=== PATIENT | male | born 1985 | race Caucasian/White ===

== ENCOUNTER 2022-03-06 09:10 | Emergency (ER) | payer OTHER ==
[~2022-03-06] VITALS: Ht 170.2 cm; Wt 72.6 kg
[2022-03-06 09:10] VITALS: BP 129/81
--- NOTE | 2022-03-06 09:10 | NUR ---
ARRIVAL PATIENT ARRIVED TO [facility] AMBULATORY, C/O ABDOMEN PAIN FOR THE PAST 2 WEEKS, PATIENT HAS ATTEMPTED TO CHANGE DIET WITH SOME RELIEF, DID TAKE IBUPROFEN BI REPORT DEVELOPER, DECIDED TO COME TO THE ED FOR EVAL, VITAL SIGNS TAKEN AND DOCTOR MAKEDA NOTIFIED OF PATIENT'S ARRIVAL.
[2022-03-06] MEDS ORDERED: TYLENOL PO STA (09:36)
[2022-03-06] MEDS ORDERED: PEPCID PO STA (09:36)
[2022-03-06] MEDS ORDERED: MYLANTA PO STA (09:36)
[2022-03-06] MEDS ORDERED: LIDOCAINE HCL VISCOUS MM STA (09:36)
[2022-03-06] MEDS ORDERED: TYLENOL PO ONE (09:40)
[2022-03-06] MEDS ORDERED: LIDOCAINE HCL VISCOUS ONE (09:40)
[2022-03-06] MEDS ORDERED: PEPCID ONE (09:40)
--- NOTE | 2022-03-06 09:51 | ER.PDOC ---
General Chief Complaint: Abdomen Pain Stated Complaint: ABD PAIN Time seen by MD: 09:43 Source: patient Exam Limitations: no limitations History of Present Illness Initial Comments Healthy 36-year-old male comes in complaining of IBS abdominal pain. The symptoms have been going on for several days and they are worse at night and empty stomach. The pain is sometimes moderate to severe and persistent. No fever and no chills. No abdominal distention. No vomiting. No black stools. Denies any other complaint. Allergies: Coded Allergies: dextromoramide (Verified Allergy, Unknown, 03/06/22) promethazine (Verified Allergy, Unknown, 03/06/22) Vital Signs First Vital Signs Date Time Temp Pulse Resp B/P (MAP) Pulse Ox O2 Delivery O2 Flow Rate FiO2 03/06/22 09:10 97.9 74 20 129/81 (97) 100 Room Air* 0 21 Last Vital Signs Date Time Temp Pulse Resp B/P (MAP) Pulse Ox O2 Delivery O2 Flow Rate FiO2 03/06/22 09:10 97.9 74 20 03/06/22 09:10 100 03/06/22 09:10 129/81 (97) Room Air* 0 21 Past Medical History Medical History: no pertinent history Surgical History: no surgical history LMP (females 10-50): N/A Not applicalbe Family History Significant Family History: no pertinent family hx Social History Smoking: non-smoker Alcohol Use: none Drug Use: none Reviewed Nursing Reviewed: Vital Signs, Abn. Noted, Nursing Assessment Constitutional: denies no symptoms reported, denies see HPI, denies chills, denies diaphoresis, denies fever, denies malaise, denies weakness, denies other EENTM: denies no symptoms reported, denies see HPI, denies eye pain, denies blurred vision, denies tearing, denies double vision, denies ear pain, denies ear discharge, denies nose pain, denies nose congestion, denies throat pain, denies throat swelling, denies mouth pain, denies mouth swelling, denies other Respiratory: denies no symptoms reported, denies see HPI, denies cough, denies orthopnea, denies shortness of breath, denies SOB with exertion, denies SOB at rest, denies stridor, denies wheezing, denies other Cardiovascular: denies no symptoms reported, denies see HPI, denies chest pain, denies edema, denies irregular heart rate, denies lightheadedness, denies palpitations, denies syncope, denies other Gastrointestinal: denies no symptoms reported, denies see HPI, denies abdomen distended; abdominal pain; denies blood streaked bowels, denies constipated, denies diarrhea, denies difficulty swallowing, denies nausea, denies poor appetite, denies poor fluid intake, denies rectal bleeding, denies vomiting, denies other Genitourinary: denies no symptoms reported, denies see HPI, denies burning, denies dysuria, denies discharge, denies frequency, denies flank pain, denies hematuria, denies incontinence, denies pain, denies urgency, denies other Musculoskeletal: denies no symptoms reported, denies see HPI, denies back pain, denies gout, denies joint pain, denies joint swelling, denies muscle pain, denies muscle stiffness, denies neck pain, denies other Skin: denies no symptoms reported, denies see HPI, denies change in color, denies change in hair/nails, denies dryness, denies lesions, denies lumps, denies rash, denies other Psychiatric/Neurological: denies no symptoms reported, denies see HPI, denies anxiety, denies depressed, denies emotional problems, denies headache, denies numbness, denies paresthesia, denies pre-existing deficit, denies seizure, denies tingling, denies tremors, denies weakness, denies other Endocrine: denies no symptoms reported, denies see HPI, denies excessive sweating, denies flushing, denies intolerance to cold, denies intolerance to heat, denies increased hunger, denies increased thrist, denies increased urine, denies unexplained weight gain, denies unexplaned weight loss, denies other Hematologic/Lymphatic: denies no symptoms reported, denies see HPI, denies anemia, denies blood clots, denies easy bleeding, denies easy bruising, denies swollen glands, denies other All Other Systems: Reviewed and Negative Physical Exam General Appearance: No Apparent Distress, WD/WN HEENT: PERRL/EOMI, Normal ENT Inspection Neck: Non-Tender, Full Range of Motion Respiratory: chest non-tender, lungs clear, normal breath sounds Cardiovascular: Normal Peripheral Pulses, Regular Rate, Rhythm, No Edema Gastrointestinal: Normal Bowel Sounds, No Organomegaly, No Pulsatile Mass, Soft, Tenderness, Other (Epigastric tenderness) Back: Normal Inspection, No CVA Tenderness Extremities: Normal Range of Motion, Non-Tender, Normal Inspection, No Pedal Edema 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, No Motor/Sensory Deficits, Alert, Normal Mood/Affect, Oriented x 3 Skin: Normal Color, Warm/Dry Lymphatic: No Adenopathy Results/Orders Results/Orders Orders - MINDI ASHFORD MD Lidocaine Hcl (Lidocaine Hcl Viscous) (03/06/22 09:36) Mag Hydrox/Aluminum Hyd/Simeth (Mylanta) (03/06/22 09:36) Acetaminophen (Tylenol) (03/06/22 09:36) Famotidine (Pepcid) (03/06/22 09:36) Acetaminophen (Tylenol) (03/06/22 09:40) Lidocaine Hcl (Lidocaine Hcl Viscous) (03/06/22 09:40) Famotidine (Pepcid) (03/06/22 09:40) Vital Signs Date Time Temp Pulse Resp B/P (MAP) Pulse Ox O2 Delivery O2 Flow Rate FiO2 03/06/22 09:10 97.9 74 20 03/06/22 09:10 97.9 74 20 100 03/06/22 09:10 97.9 74 20 129/81 (97) 100 Room Air* 0 21 Progress Progress 36-year-old male comes in with epigastric abdominal pain. The pain is worse at night. Been going on for several days. Was also on empty stomach. No fever and no chills. No bleeding. No vomiting. Denies any other complaint. This is a textbook explanation for gastritis. ER DEPART Departure Time of Disposition: 09:52 Disposition: 01 HOME / SELF CARE / HOMELESS Impression: Primary Impression: Epigastric abdominal pain Additional Impression: Gastritis Condition: Stable Patient Instructions: Diet for Gastroesophageal Reflux Disease, Adult, Gastritis, Adult, [id number], Peptic Ulcer Disease, [id number] Referrals: PCP,UNKNOWN (PCP) PRIMARY CARE PROVIDER Additional Instructions: You may have gastritis or small stomach ulcer No spicy nor fatty meals for several months Take all medication as prescribed even after the pain is gone follow-up with your doctor soon as possible and consider testing for H. pylori Return to the hospital if any new symptoms develop follow-up Duration or Time Spent with Pa: 20 Problem Qualifiers MINDI ASHFORD MD Mar 06, 2022 09:51
[2022-03-06 09:58] VITALS: BP 123/52
== END 2022-03-06 10:15 | disposition home or self-care (01) ==
LOC: ER 09:10
DX: K29.70 Gastritis, unspecified, without bleeding (principal); R10.13 Epigastric pain; K58.9 Irritable bowel syndrome, unspecified
CPT/HCPCS: 99284; A9150; J3490

== ENCOUNTER 2022-03-23 02:20 | Emergency (ER) | payer OTHER ==
[~2022-03-23] VITALS: Ht 172.7 cm; Wt 70.8 kg
[2022-03-23 02:51] VITALS: BP 155/100
--- NOTE | 2022-03-23 03:31 | ER.PDOC ---
General Chief Complaint: Abdomen Pain Stated Complaint: ABD & BACK PAIN Time seen by MD: 03:31 Source: patient Exam Limitations: no limitations History of Present Illness Initial Comments Patient presents to the emergency room complaining of severe epigastric pain radiating to the right upper quadrant and back that has progressively gotten worse since 11 PM yesterday. Admits to nausea, pain is better with running on the treadmill as well as warm pad on his right flank/back. Denies any fever, urinary symptoms and in no acute distress, but appears uncomfortable due to pain. Severity/Quality: severe Radiation: RUQ, RLQ, flank, back (right) Associated Symptoms: back pain (right side) Relieved By: other (running on the treadmill) Allergies: Coded Allergies: dextromoramide (Verified Allergy, Unknown, 03/06/22) promethazine (Verified Allergy, Unknown, 03/06/22) Vital Signs First Vital Signs Date Time Temp Pulse Resp B/P (MAP) Pulse Ox O2 Delivery O2 Flow Rate FiO2 03/23/22 02:51 97.9 83 18 03/23/22 02:51 100 03/23/22 02:51 155/100 (118) Room Air* 0 21 Last Vital Signs Date Time Temp Pulse Resp B/P (MAP) Pulse Ox O2 Delivery O2 Flow Rate FiO2 03/23/22 05:53 97.9 82 16 142/71 (94) 96 Room Air* 0 21 Past Medical History Medical History: no pertinent history Surgical History: no surgical history Social History Alcohol Use: occassionally Drug Use: none Constitutional: denies chills, denies diaphoresis, denies fever, denies malaise, denies weakness Respiratory: denies cough, denies shortness of breath, denies SOB with exertion Cardiovascular: denies chest pain, denies lightheadedness Gastrointestinal: denies abdomen distended; abdominal pain, nausea; denies vomiting Genitourinary: denies dysuria Musculoskeletal: back pain (right side) Skin: denies change in color, denies rash Psychiatric/Neurological: denies headache All Other Systems: Reviewed and Negative Physical Exam General Appearance: No Apparent Distress, WD/WN HEENT: PERRL/EOMI, Normal ENT Inspection (external) Neck: Non-Tender, Full Range of Motion, Supple, Normal Inspection Respiratory: chest non-tender, lungs clear, normal breath sounds, no respiratory distress, no accessory muscle use Cardiovascular: Normal Peripheral Pulses, Regular Rate, Rhythm, No Edema, No Gallop, No JVD, No Murmur Gastrointestinal: Normal Bowel Sounds, No Organomegaly, No Pulsatile Mass, Soft, Guarding, Rebound (tenderness RUQ and RLQ), Tenderness (RUQ, RLQ, LLQ and epigastric region.), McBurneys point tender, Rovsing's sign Back: Normal Inspection, No Vertebral Tenderness, CVA Tenderness (R) Extremities: Normal Range of Motion, Non-Tender, Normal Inspection, No Pedal Edema, No Calf Tenderness, Normal Capillary Refill 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, No Motor/Sensory Deficits, Alert, Normal Mood/Affect, Oriented x 3 Skin: Normal Color, Warm/Dry Results/Orders Results/Orders Orders - ODELL AU MD Cbc With Auto Diff (03/23/22 03:39) Comprehensive Metabolic Panel (03/23/22 03:39) Lipase (03/23/22 03:39) Saline Lock (03/23/22 03:39) Morphine Sulfate (Morphine Sulfate) (03/23/22 03:39) Ondansetron Hcl/Pf (Zofran) (03/23/22 03:39) 0.9 % Sodium Chloride (Ns 1000ml) (03/23/22 03:40) 0.9 % Sodium Chloride (Ns 1000ml) (03/23/22 03:47) Ondansetron Hcl/Pf (Zofran) (03/23/22 03:48) Morphine Sulfate (Morphine Sulfate) (03/23/22 03:48) Ct Abd/Pel With Iv Contrast (03/23/22 04:48) Ketorolac Tromethamine (Toradol) (03/23/22 04:51) Ketorolac Tromethamine (Toradol) (03/23/22 05:16) Vital Signs Date Time Temp Pulse Resp B/P (MAP) Pulse Ox O2 Delivery O2 Flow Rate FiO2 03/23/22 05:53 97.9 82 16 142/71 (94) 96 Room Air* 0 21 03/23/22 05:00 97.9 83 18 137/94 (108) 99 Room Air* 0 21 03/23/22 04:00 97.9 77 18 143/94 (110) 97 Room Air* 0 03/23/22 02:51 97.9 83 18 155/100 (118) 100 Room Air* 0 03/23/22 02:51 97.9 83 18 100 03/23/22 02:51 97.9 83 18 Administered Medications Medications (Trade) Dose Ordered Sig/Werner Route PRN Reason Start Time Stop Time Status Last Admin Dose Admin Ketorolac Tromethamine (Toradol) 30 mg OT STAT IV 03/23/22 04:51 03/23/22 04:52 DC 03/23/22 05:19 30 MG Morphine Sulfate (Morphine Sulfate) 4 mg STAT STAT IV 03/23/22 03:39 03/23/22 03:41 DC 03/23/22 04:22 4 MG Ondansetron HCl (Zofran) 4 mg OT STAT IV 03/23/22 03:39 03/23/22 03:41 DC 03/23/22 04:22 4 MG Sodium Chloride 1,000 ml @ 999 mls/hr Q1H1M STAT IV 03/23/22 03:40 03/23/22 04:40 DC 03/23/22 04:23 999 MLS/HR Laboratory Tests Test 03/23/22 04:10 White Blood Count 8.0 10^3/uL (4.5-11.0) Red Blood Count 5.36 10^6/uL (4.50-5.90) Hemoglobin 16.3 g/dL (13.9-16.3) Hematocrit 46.9 % (37.0-53.0) Mean Corpuscular Volume 87.5 fL (78-100) Mean Corpuscular Hemoglobin 30.4 pg (26-34) Mean Corpuscular Hemoglobin Concent 34.8 g/dL (33-36.5) Red Cell Distribution Width 12.3 % (11.5-14.5) Platelet Count 179 10^3/uL (150-400) Mean Platelet Volume 12.7 fL (7.8-11.0) H Neutrophils (%) (Auto) 66.5 % (41.0-85.0) Lymphocytes (%) (Auto) 24.6 % (24.0-44.0) Monocytes (%) (Auto) 7.6 % (5.0-12.0) Neutrophils # (Auto) 5.3 10^3/uL (1.8-7.7) Lymphocytes # (Auto) 1.96 10^3/uL1 (1.0-4.8) Monocytes # (Auto) 0.6 10^3/uL (0.3-0.8) Absolute Immature Granulocyte (auto 0.01 10^3 u/L (0-2) Absolute Eosinophils (auto) 0.1 10^3/uL (0.0-0.2) Immature Granulocytes % 0.10 % (0.00-0.50) Eosinophils % 0.8 % (0.0-5.0) Basophils % 0.4 % (0.0-0.2) H Basophils # 0.0 10^3/uL (0.0-0.1) Sodium Level 140 mmol/L (132-145) Potassium Level 4.6 mmol/L (3.6-5.2) Chloride Level 105.0 mmol/L (96-109) Carbon Dioxide Level 27.1 mmol/L (20.0-32) Anion Gap 12.5 Blood Urea Nitrogen 19 mg/dL (7-18) H Creatinine 1.18 mg/dL (0.59-1.40) Estimated GFR () 84.5 (>/=60) Est GFR (CKD-EPI)(Non-Afr Citizen Of [place]) 69.8 (>/=60) BUN/Creatinine Ratio 16.0 Glucose Level 103 mg/dL (70-110) Calcium Level 9.5 mg/dL (8.4-10.5) Total Bilirubin 0.6 mg/dL (0.2-1.0) Aspartate Amino Transferase (AST) 38 U/L (0-35) H Alanine Aminotransferase (ALT) 54 U/L (12-78) Alkaline Phosphatase 107 U/L (50-136) Total Protein 7.3 g/dL (6.4-8.2) Albumin 4.2 g/dL (3.4-5.0) Globulin 3.1 Albumin/Globulin Ratio 1.354 Lipase 181 U/L (114-286) Progress Progress At 04:17: awaiting labs. Admits to improve pain and would like to sleep. EKG/XRAY/CT/US CT Comments: CT ABD/PEL: Cholithiasis witout evidence of cholecystitis. ER DEPART Departure Time of Disposition: 05:49 Disposition: 01 HOME / SELF CARE / HOMELESS Impression: Primary Impression: Cholelithiasis Additional Impression: Abdominal pain Condition: Stable Referrals: PCP,UNKNOWN (PCP) PRIMARY CARE PROVIDER Additional Instructions: Adequate pain control advised with prescribed analgesics. Adequate fluid intake advised. He is advised to follow-up with his PCP/general surgery for further evaluation and management. Return to the emergency room if symptoms worsen. Duration or Time Spent with Pa: 20 mins Problem Qualifiers ODELL AU MD Mar 23, 2022 03:31
[2022-03-23] MEDS ORDERED: MORPHINE SULFATE IV STA (03:39)
[2022-03-23] MEDS ORDERED: ZOFRAN IV STA (03:39)
[2022-03-23] MEDS ORDERED: NS 1000ML 1,000 ML IV STA (03:40)
[2022-03-23] MEDS ORDERED: NS 1000ML 1,000 ML ONE (03:47)
[2022-03-23] MEDS ORDERED: MORPHINE SULFATE ONE (03:48)
[2022-03-23] MEDS ORDERED: ZOFRAN ONE (03:48)
[2022-03-23 04:00] VITALS: BP 143/94
[2022-03-23 04:20] LABS: BASOPHIL % 0.4 % (0.0-0.2); EOSINOPHIL # 0.1 10^3/uL (0.0-0.2); EOSINOPHIL % 0.8 % (0.0-5.0); LYMPHOCYTES # 1.96 10^3/uL1 (1.0-4.8); LYMPHOCYTES % 24.6 % (24.0-44.0); MEAN CORP HGB 30.4 pg (26-34); MONOCYTES # 0.6 10^3/uL (0.3-0.8); MONOCYTES % 7.6 % (5.0-12.0); NEUTROPHIL # 5.3 10^3/uL (1.8-7.7); NEUTROPHILS % 66.5 % (41.0-85.0); PLATELET COUNT 179 10^3/uL (150-400); RED CELL DISTRIBUTION WIDTH 12.3 % (11.5-14.5)
[2022-03-23 04:36] LABS: CARBON DIOXIDE 27.1 mmol/L (20.0-32)
[2022-03-23] MEDS ORDERED: TORADOL IV STA (04:51)
[2022-03-23 05:00] VITALS: BP 137/94
[2022-03-23] MEDS ORDERED: TORADOL ONE (05:16)
--- NOTE | 2022-03-23 05:29 | DIREP ---
PROCEDURE:CT ABDOMEN/PELVIS W/ CONTRAST COMPARISON:None. INDICATIONS:Epigastric, RUQ, RLQ and right flank pain. TECHNIQUE:Axial images were created through the abdomen and pelvis with non-ionic intravenous contrast material. No oral contrast was administered. Sagittal and coronal reconstructions were performed from source images. FINDINGS: LUNG BASES:Normal. No visible pulmonary or pleural disease. LIVER:Normal. No significant liver lesions are identified. BILIARY:Gallstone. No pericholecystic fluid. PANCREAS:Normal. No lesion, fluid collection, ductal dilatation, or atrophy. SPLEEN:Normal. No enlargement or focal lesion. ADRENALS:Normal. No mass or enlargement. URINARY TRACT:Normal. No focal lesions or hydronephrosis. AORTA/VASCULAR:Normal. No aneurysm. RETROPERITONEUM:Normal. No mass or adenopathy. BOWEL/MESENTERY:The appendix is visualized and appears normal. There is no intestinal obstruction, free fluid, free air or mesenteric inflammatory changes. ABDOMINAL WALL:Normal. No mass or hernia. PELVIC ORGANS:Normal. No visible mass. Pelvic organs appropriate for patient age. BONES:Normal for age. No bony lesion or acute fracture. OTHER:Negative. CONCLUSION:Gallstone. Acute process is not suspected. Dictated by: Brennan Bravo MD on 03/23/2022 at 05:21 AM
[2022-03-23 05:53] VITALS: BP 142/71
--- NOTE | 2022-03-23 05:54 | NUR ---
IV DC'D TIP INTACT, NO BLEEDING
== END 2022-03-23 05:55 | disposition home or self-care (01) ==
LOC: ER 02:20
DX: K80.20 Calculus of gallbladder without cholecystitis without obstruction (principal); R10.11 Right upper quadrant pain; R10.13 Epigastric pain; F10.20 Alcohol dependence, uncomplicated; R11.2 Nausea with vomiting, unspecified
CPT/HCPCS: 36415; 74177; 80053; 83690; 85025; 96361; 96374; 96375; 99285; J1885; J2405; J7030; Q9965